=== PATIENT | male | born 1975 | race Caucasian/White ===

== ENCOUNTER 2017-06-03 17:36 | Emergency (ER) | payer OTHER ==
[~2017-06-03] VITALS: Ht 182.9 cm; Wt 113.4 kg
--- OUTSIDE RECORDS SUMMARY | ~2017-06-03 | XMS | Clinical Summary ---
Demographics + + + | Address | [address] | | | [place] [address] | + + + | Home Phone | | + + + | Preferred Language | Unknown | + + + | Marital Status | Single | + + + | Methodist Affiliation | ADV | + + + | Race | White | + + + | Ethnic Group | Not or | + + + Author + + + | Organization | Unknown | + + + | Address | Unknown | + + + | Phone | Unavailable | + + + Support + + + + + | Name | Relationship | Address | Phone | + + + + + | TITA WILLAMS | ECON | [place] | | + + + + + Care Team Providers + +------+ + | Care Svp Innovation Partnerships Name | Role | Phone | + +------+ + | Anshul Jiang MD | PP | | + +------+ + Source Comments GREG is fully live on both [facility] Ambulatory and [facility] InPatient.[facility] Allergies Not on File Current Medications Not on file Active Problems Not on file Social History + +-------+ +--------+------+ | Tobacco [...] on file | | + + + Plan of Treatment + + + + + | Health Maintenance | Due Date | Last Done | Comments | + + + + + | INFLUENZA VACCINE | | | | | (FLU SHOT) | 8 | | | + + + + + Results Not on filefrom Last 3 Months"
--- OUTSIDE RECORDS SUMMARY | ~2017-06-03 | XMS | Clinical Summary ---
Demographics + + + | Address | [address] | | | [place] [address] | + + + | Home Phone [...] Team Providers + +------+ + | Care Machine Chain Maker Name | Role | Phone | + +------+ + | Anshul Jiang MD | PP | | + +------+ + Source Comments GREG is fully live on both [facility] Ambulatory and [facility] InPatient.[facility] Allergies Not on File Current Medications Not [...]
[~2017-06-03 17:36] MED LIST: ALLEGRA-D 24 H1 EACH PO; ANUSOL-HC30 GM PR; CEPHALEXIN500 MG PO; CIPRO500 MG PO; CLARITIN-D 241 EACH PO; FLUTICASONE PRO16 GM NAS; GUAIFENESIN-CO118 ML PO; KEFLEX500 MG PO; LEVAQUIN500 MG PO; MACROBID 100 M100 MG PO; NORCO 5-325 TA1 EACH PO; OXYBUTYNIN CHLO10 MG PO; OXYBUTYNIN CHLOR5 MG PO; PROVENTIL HFA6.7 GM INH; ZOFRAN ODT8 MG PO
[2017-06-03] MEDS ORDERED: LOVASTATIN20 MG PO (17:54)
[2017-06-03] MEDS ORDERED: CLARITIN-D 241 EACH PO (17:54)
[2017-06-03] MEDS ORDERED: RA FISH OIL 1,1 EACH PO (17:54)
--- NOTE | 2017-06-04 17:42 | EKG ---
[facility] [address] [facility] [place], [place] [address] Signed Sinus tachycardia Otherwise normal ECG No previous ECGs available Confirmed by KAMI SHARMA MD ([id number]) on 06/04/2017 5:42:30 PM Electronically Signed By: KAMI SHARMA MD 06/04/17 174 PATIENT NAME: VINNIE THORNTON Electrocardiogram DATE OF : 77 PHYSICIAN: KAMI SHARMA MD REPORT #: [id number] REPORT IS CONFIDENTIAL AND NOT TO BE RELEASED WITHOUT AUTHORIZATION
== END 2017-06-03 20:30 | disposition home or self-care (01) ==
LOC: ED 17:36
DX: R07.2 Precordial pain (principal); F17.200 Nicotine dependence, unspecified, uncomplicated; Z79.899 Other long term (current) drug therapy
CPT/HCPCS: 71046; 76705; 80053; 83690; 84484; 85025; 85379; 93005; 93010; 96374; 99284; J1885

== ENCOUNTER 2017-08-09 16:56 | Emergency (ER) | payer OTHER ==
[~2017-08-09] VITALS: Ht 182.9 cm; Wt 113.4 kg
[~2017-08-09 16:56] MED LIST changes: +LOVASTATIN20 MG PO; +RA FISH OIL 1,1 EACH PO
[2017-08-09] MEDS ORDERED: OXYBUTYNIN CHLOR5 MG PO (17:19)
== END 2017-08-09 17:27 | disposition home or self-care (01) ==
LOC: ED 16:56
DX: K08.89 Other specified disorders of teeth and supporting structures (principal)

== ENCOUNTER 2018-06-22 16:29 | Emergency (ER) | payer OTHER ==
[~2018-06-22] VITALS: Ht 182.9 cm; Wt 113.4 kg
--- OUTSIDE RECORDS SUMMARY | ~2018-06-22 | XMS | Clinical Summary ---
Demographics + + + | Address | [address] | | | [place] [address] | + + + | Home Phone | | + + + | Preferred Language | Unknown | + + + | Marital Status | Single | + + + | Buddhism Affiliation | ADV | + + + [...] Team Providers + +------+ + | Care Furnace Unloader Name | Role | Phone | + +------+ + | Anshul Jiang MD | PP | | + +------+ + Source Comments GREG is fully live on both [facility] Ambulatory and [facility] InPatient.[facility] Allergies Not on File Current Medications [...]
--- OUTSIDE RECORDS SUMMARY | ~2018-06-22 | XMS | Clinical Summary ---
Demographics + + + | Address | [address] | | | [place] [address] | + + + | Home Phone [...] Team Providers + +------+ + | Care Land Commissioner Name | Role | Phone | + +------+ + | Anshul Jiang MD | PP | | + +------+ + Source Comments GREG is fully live on both [facility] Ambulatory and [facility] InPatient.[facility] Allergies Not on File Current Medications [...]
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
[2018-06-22] MEDS ORDERED: FENOFIBRATE54 MG PO (16:40)
== END 2018-06-22 17:13 | disposition home or self-care (01) ==
LOC: ED 16:29
DX: R51 Headache (principal); J45.909 Unspecified asthma, uncomplicated; F17.200 Nicotine dependence, unspecified, uncomplicated; Z79.899 Other long term (current) drug therapy; V43.52XA Car driver injured in collision with other type car in traffic accident, initial encounter
CPT/HCPCS: 99283

== ENCOUNTER 2018-06-28 21:21 | Emergency (ER) | payer OTHER ==
[~2018-06-28] VITALS: Ht 182.9 cm; Wt 113.4 kg
--- OUTSIDE RECORDS SUMMARY | ~2018-06-28 | XMS | Encounter Summary ---
Demographics + + + | Address | [address] | | | [place] [address] | + + + | Home Phone | | + + + | Preferred Language | Unknown | + + + | Marital Status | Single | + + + | Congregational Affiliation | ADV | + + + | Race | White | + + + | Ethnic Group | Not or | + + + Author + + + | Author | [facility] | + + + | Organization | [facility] | + + + | Address | Unknown | + + + | Phone | Unavailable | + + + Support + + + + + | Name | Relationship | Address | Phone | + + + + + | Yasmeen Donald | HILARIO | [place] | | + + + + + Care Team Providers + +------+ + | Care Compensation Specialist Name | Role | Phone | + +------+ + PCP | Unavailable | + +------+ + Encounter Details +--------+ + + + + | Date | Type | Department | Care Team | Description | +--------+ + + + + | 06/28/ | Results | [facility] | Katie Norwood, | | | 1999 | Only | Medicine at [facility] | | | | | | Terry [address] | | | | | | [facility] | | | | | | Mailcode: [address] | | | | | | [address] | | | | | | [place], [place] | | | | | | [address] | | | | | | [phone] | | | +--------+ + + + + Social History + +-------+ +--------+------+ | Tobacco Use | Types | Packs/Day | Years | Date | | | | | Used | | + +-------+ +--------+------+ | Never Assessed | | | | | + +-------+ +--------+------+ + + + | Sex Assigned at | Date Recorded | | | | + + + | Not on file | | + + + + + + + | Job Start Date | Occupation | Industry | + + + + | Not on file | Not on file | Not on file | + + + + + + + + | Travel History | Travel Start | Travel End | + + + + + + | No recent travel history available. | + + documented as of this encounter Plan of Treatment Not on filedocumented as of this encounter Procedures + +--------+ + + + | Procedure Name | Priori | Date/Time | Associated Diagnosis | Comments | | | ty | | | | + +--------+ + + + | HIV-1,2 AB/HIV-1 P24 | Routin | 06/29/1999 | | Results for this | | AG SCRN | e | 2:47 PM | | procedure are in the | | | | PDT | | results section. | + +--------+ + + + | FTA, SERUM | Routin | 06/29/1999 | | Results for this | | | e | 2:47 PM | | procedure are in the | | | | PDT | | results section. | + +--------+ + + + | HEPATITIS C VIRUS | Routin | 06/29/1999 | | Results for this | | W/CONFIRMATION | e | 2:47 PM | | procedure are in the | | | | PDT | | results section. | + +--------+ + + + documented in this encounter Results FTA, SERUM (06/29/1999 2:47 PM PDT) + + + + + + | Component | Value | Ref Range | Performed | Pathologist | | | | | At | Signature | + + + + + + | T. PALLIDUM | Non-Reactive | Non - Reactive | | | | AB IGG | | | | | | (FTA) | | | | | + + + + + + + + | Specimen | + + | | + + + + + + + | Performing | Address | City/State/Zipcode | Phone Number | | Organization | | | | + + + + + | [facility] | [address] | [place], [place] | | | [facility] | | [address] | | + + + + + HEPATITIS C AB (06/29/1999 2:47 PM PDT) + + + + + + | Component | Value | Ref Range | Performed | Pathologist | | | | | At | Signature | + + + + + + | HEPATITIS C | Negative | Negative | | | | AB | | | | | + + + + + + + + | Specimen | + + | | + + + + + | Narrative | Performed At | + + + | This serologic pattern suggests the | | | individual does not have Type C | | | hepatitis. | | + + + + + + + + | Performing | Address | City/State/Zipcode | Phone Number | | Organization | | | | + + + + + | [facility] | [address] | [place] [address] | | | LABORATORY | | | | + + + + + HIV AB, SCREEN (06/29/1999 2:47 PM PDT) + + + + + + | Component | Value | Ref Range | Performed | Pathologist | | | | | At | Signature | + + + + + + | HIV-1/HIV2 | Negative | Negative | [facility] | | | AB SCREEN | | | DEPARTMENT | | | | | | OF | | | | | | PATHOLOGY | | + + + + + + | FORM SIGNED | Junior | | [facility] | | | BY: | | | DEPARTMENT | | | | | | OF | | | | | | PATHOLOGY | | + + + + + + + + | Specimen | + + | | + + + + + + + | Performing | Address | City/State/Zipcode | Phone Number | | Organization | | | | + + + + + | [facility] DEPARTMENT OF | [address] | [place] [address] | | | PATHOLOGY | [address] | | | + + + + + | [facility] | [address] | [place] [address] | | | PATHOLOGY | [address] | | | + + + + + documented in this encounter Visit Diagnoses Not on filedocumented in this encounter"
--- OUTSIDE RECORDS SUMMARY | ~2018-06-28 | XMS | Clinical Summary ---
Demographics + + + | Address | [address] | | | [place] [address] | + + + | Home Phone | | + + + | Preferred Language | Unknown | + + + | Marital Status | Single | + + + | Sikhism Affiliation | ADV | + + + [...] Team Providers + +------+ + | Care Bingo Worker Name | Role | Phone | + +------+ + | Anshul Jiang MD | PP | | + +------+ + Source Comments GREG is fully live on both [facility] Ambulatory and [facility] InPatient.[facility] Allergies Not on File Medications Not on file Active Problems Not [...] recent travel history available. | + + Plan of Treatment + + + + + | Health Maintenance | Due Date | Last Done | Comments | + + + + + | Influenza (Flu) | | | | | vaccination (Season | 9 | | | | Ended) | | | | + + + + + Results Not on filefrom Last 3 Months"
--- OUTSIDE RECORDS SUMMARY | ~2018-06-28 | XMS | Encounter Summary ---
Demographics + + + | Address | [address] | | | [place] [address] | + + + | Home Phone | | + + + | Preferred Language | Unknown | + + + | Marital Status | Single | + + + | Mandaen Affiliation | ADV | + + + | Race | White | + + + | Ethnic Group | Not or | + + + Author + + + | Author | [facility] | + + + | Organization | [facility] | + + + | [...] Team Providers + +------+ + | Care Extension Service Specialist In Charge Name | Role | Phone | + +------+ + | Anshul Jiang MD | PCP | | + +------+ + Encounter Details +--------+ + + + + | Date | Type | Department | Care Team | Description | +--------+ + + + + | 10/15/ | DELETED | Preoperative | Consult, | ANESTHESIA/SEDATION | | 2001 | TRANSCRIPTI | Medicine Clinic at | Anesthesia [address] | | | | ON | [facility] 4th Floor [address] [facility] | | | | | [address] Mail | Road [place], [place] | | | | | Code: [address] | [address] | | | | | for Health and | | | | | | Healing,4th Floor | | | | | | [place], [place] | | | | | | [address] | | | | | | [phone] | | | +--------+ + + + [...] | + +--------+ + + + | ANESTHESIA/SEDATION | | 10/15/2001 | | Results for this | | | | 11:03 AM | | procedure are in the | | | | PDT | | results section. | + +--------+ + + + documented in this encounter Visit Diagnoses Not on filedocumented in this encounter"
--- OUTSIDE RECORDS SUMMARY | ~2018-06-28 | XMS | Encounter Summary ---
Demographics + + + | Address | [address] | | | [place] [address] | + + + | Home Phone | | + + + | Preferred Language | Unknown | + + + | Marital Status | Single | + + + | Confucianist Affiliation | ADV | + + + [...] + + + | Yasmeen Donald | ECON | [place] | | + + + + + Care Team Providers + +------+ + | Care Band Cutter Name | Role | Phone | + +------+ + | Anshul Jiang MD | PCP | | + +------+ + Encounter Details +--------+ + + + + | Date | Type | Department | Care Team | Description | +--------+ + + + + | 10/14/ | Procedure - | | Documentation, | OP REPORT-TEACHING | | 2001 | | | Teaching Physician | | | | Transcribed | | | | +--------+ + + + [...] | + +--------+ + + + | TEACHING PHYSICIAN | | 10/14/2001 | | | + +--------+ + + + documented in this encounter Visit Diagnoses Not on filedocumented in this encounter"
--- OUTSIDE RECORDS SUMMARY | ~2018-06-28 | XMS | Clinical Summary ---
Demographics + + + | Address | [address] | | | [place] [address] | + + + | Home Phone | | + + + | Preferred Language | Unknown | + + + | Marital Status | Single | + + + | Congregation Affiliation | ADV | + + + [...] Team Providers + +------+ + | Care Music Executive Name | Role | Phone | + +------+ + | Anshul Jiang MD | PP | | + +------+ + Source Comments GREG is fully live on both [facility] Ambulatory and [facility] InPatient.[facility] & [facility] Allergies Not on File Medications Not on [...]
--- OUTSIDE RECORDS SUMMARY | ~2018-06-28 | XMS | Encounter Summary ---
Demographics + + + | Address | [address] | | | [place] [address] | + + + | Home Phone | | + + + | Preferred Language | Unknown | + + + | Marital Status | Single | + + + | Latter-Day Affiliation | ADV | + + + | Race | White | + + + | Ethnic Group | Not or | + + + Author + + + | Author | [facility] | + + + | Organization | [facility] | + + + | [...] Team Providers + +------+ + | Care Catalogue Maker Name | Role | Phone | + +------+ + PCP | Unavailable | + +------+ + Encounter Details +--------+ + + + + | Date | Type | Department | Care Team | Description | +--------+ + + + + | 10/13/ | Results | Neurosurgery [address] | Morgan Cordova MD | | | 2001 | Only | [address] | | | | | | [facility] | | | | | | Mailcode:[id number] | | | | | | [facility] | | | | | | [place], [place] | | | | | | [address] | | | | | | [phone] | | | +--------+ + + + [...] | + +--------+ + + + | BASIC METABOLIC SET | Routin | 10/15/2001 | | Results for this | | (NA, K, CL, TCO2, | e | 8:20 AM | | procedure are in the | | BUN, CR, GLU, CA) | | PDT | | results section. | + +--------+ + + + | PHOSPHORUS, PLASMA | Routin | 10/15/2001 | | Results for this | | | e | 8:20 AM | | procedure are in the | | | | PDT | | results section. | + +--------+ + + + | MAGNESIUM, PLASMA | Routin | 10/15/2001 | | Results for this | | | e | 8:20 AM | | procedure are in the | | | | PDT | | results section. | + +--------+ + + + | TYPE AND SCREEN | Routin | 10/13/2001 | | Results for this | | | e | 12:05 PM | | procedure are in the | | | | PDT | | results section. | + +--------+ + + + documented in this encounter Results BASIC METABOLIC SET (10/15/2001 8:20 AM PDT) + +---------+ + + + | Component | Value | Ref Range | Performed | Pathologist | | | | | At | Signature | + +---------+ + + + | GLUCOSE, | 140 (H) | 65 - 110 mg/dL | [facility] | | | PLASMA | | | DEPARTMENT | | | (LAB) | | | OF | | | | | | PATHOLOGY | | + +---------+ + + + | BUN, PLASMA | 16 | 6 - 20 mg/dL | [facility] | | | (LAB) | | | DEPARTMENT | | | | | | OF | | | | | | PATHOLOGY | | + +---------+ + + + | CREATININE | 1.2 | 0.7 - 1.3 mg/dL | [facility] | | | PLASMA | | | DEPARTMENT | | | (LAB) | | | OF | | | | | | PATHOLOGY | | + +---------+ + + + | SODIUM, | 136 | 136 - 145 | [facility] | | | PLASMA | | mmol/L | DEPARTMENT | | | (LAB) | | | OF | | | | | | PATHOLOGY | | + +---------+ + + + | POTASSIUM, | 3.5 | 3.5 - 5.1 | [facility] | | | PLASMA | | mmol/L | DEPARTMENT | | | (LAB) | | | OF | | | | | | PATHOLOGY | | + +---------+ + + + | CHLORIDE, | 101 | 98 - 107 mmol/L | [facility] | | | PLASMA | | | DEPARTMENT | | | (LAB) | | | OF | | | | | | PATHOLOGY | | + +---------+ + + + | TOTAL CO2, | 25 | 23 - 29 mmol/L | [facility] | | | PLASMA | | | DEPARTMENT | | | (LAB) | | | OF | | | | | | PATHOLOGY | | + +---------+ + + + | CALCIUM, | 8.9 | 8.5 - 10.5 | [facility] | | | PLASMA | | mg/dL | DEPARTMENT | | | (LAB) | | | OF | | | | | | PATHOLOGY | | + +---------+ + + + + + | Specimen | + + | | + + + + + + + | Performing | Address | City/State/Zipcode | Phone Number | | Organization | | | | + + + + + | [facility] | [address] [facility] | [place] [address] | | | PATHOLOGY | [address] | | | + + + + + | [facility] | [address] [facility] [facility] [facility] | [place] [address] | | | PATHOLOGY | [address] | | | + + + + + MAGNESIUM, PLASMA (10/15/2001 8:20 AM PDT) + +-------+ + + + | Component | Value | Ref Range | Performed | Pathologist | | | | | At | Signature | + +-------+ + + + | MAGNESIUM,P | 2.0 | 1.8 - 2.5 mg/dL | [facility] | | | LASMA | | | DEPARTMENT | | | | | | OF | | | | | | PATHOLOGY | | + +-------+ + + + + + | Specimen | + + | | + + + + + + + | Performing | Address | City/State/Zipcode | Phone Number | | Organization | | | | + + + + + | [facility] | [address] [facility] | [place] [address] | | | PATHOLOGY | [address] | | | + + + + + | [facility] DE[facility]MENT OF | [address] [facility] [facility] | [place] [address] | | | PATHOLOGY | [address] | | | + + + + + PHOSPHORUS, PLASMA (10/15/2001 8:20 AM PDT) + +-------+ + + + | Component | Value | Ref Range | Performed | Pathologist | | | | | At | Signature | + +-------+ + + + | PHOSPHORUS, | 3.7 | 2.4 - 4.7 mg/dL | [facility] | | | PLASMA | | | DEPARTMENT | | | (LAB) | | | OF | | | | | | PATHOLOGY | | + +-------+ + + + + + | Specimen | + + | | + + + + + + + | Performing | Address | City/State/Zipcode | Phone Number | | Organization | | | | + + + + + | [facility] | [address] | [place] [address] | | | PATHOLOGY | [address] | | | + + + + + | [facility] DEPARTMENT OF | [address] | [place] [address] | | | PATHOLOGY | [address] | | | + + + + + TYPE AND SCREEN (10/13/2001 12:05 PM PDT) + +-------+ + + + | Component | Value | Ref Range | Performed | Pathologist | | | | | At | Signature | + +-------+ + + + | ABO GROUP | A | | [facility] | | | | | | DEPARTMENT | | | | | | OF | | | | | | PATHOLOGY | | + +-------+ + + + | RH TYPE | POS | | [facility] | | | | | | DEPARTMENT | | | | | | OF | | | | | | PATHOLOGY | | + +-------+ + + + | ANTIBODY | NEG | | [facility] | | | SCREEN | | | DEPARTMENT | | | | | | OF | | | | | | PATHOLOGY | | + +-------+ + + + + + | Specimen | + + | | + + + + + | Narrative | Performed At | + + + | EXP 10/17/01 @ 0700 | [facility] | | | DEPARTMENT OF | | | PATHOLOGY | + + + + + + + + | Performing | Address | City/State/Zipcode | Phone Number | | Organization | | | | + + + + + | [facility] DEPARTMENT OF | [address] | [place] [address] | | | PATHOLOGY | [address] | | | + + + + + | [facility] | [address] | [place] [address] | | | PATHOLOGY | [address] | | | + + + + + documented in this encounter Visit Diagnoses Not on filedocumented in this encounter"
--- OUTSIDE RECORDS SUMMARY | ~2018-06-28 | XMS | Encounter Summary ---
Demographics + + + | Address | [address] | | | [place] [address] | + + + | Home Phone | | + + + | Preferred Language | Unknown | + + + | Marital Status | Single | + + + | Mandaeism Affiliation | ADV | + + + [...] Team Providers + +------+ + | Care Boilermaker Helper Name | Role | Phone | + +------+ + | Anshul Jiang MD | PCP | | + +------+ + Encounter Details +--------+ + + + + | Date | Type | Department | Care Team | Description | +--------+ + + + + | 10/14/ | Office | | Note, Outpatient | Progress Note | | 2002 | Visit-Trans | | Clinic | | | | cribed | | | | +--------+ + + [...] + + documented as of this encounter Progress Notes Interface, Telephone Lines Repairer In - 10/05/2005 1:01 AM PDTCLINIC DATE: 10/14/2001 INTRAOPERATIVE EMG STUDY REPORT: Intraoperative EMG study was conducted on October 14, 2001, during a lumbosacral laminectomy and spinal cord and tethering procedure. The testing was performed to help the surgeon to identify and determine the functional integrity of the lumbosacral nerve roots prior to and tethering. EMG activity was recorded from the quadriceps, anterior tibialis, and gastrocnemius muscle groups bilaterally and from the anal sphincter. Lumbosacral nerve roots and the filum were stimulated using constant current pulses presented through jose f hook stimulating electrodes at a rate of 3.1 per second. The anesthesiologists were informed of the testing. TEST RESULTS: No spontaneous or mechanically evoked EMG activity was recorded. Stimulation of nerve roots successfully induced EMG activity from enervated muscle groups. No EMG activity was recorded at one of the structure identified as the filum was stimulated at up to 3 million. INTERPRETATION: The lack of spontaneous or mechanically evoked EMG activity during the procedure suggest that the nerve roots were not irritated as the result of the surgery. Electrical stimulation of nerve roots and the filum facilitated identification of the structures and tethering purposes. This intraoperative EMG study was requested by Dr. Morgan Cordova from the Department of Neurological Surgery. Technical survey started at 7:30 a.m. and ended at 10:30 a.m. I provided interpretation for 2 hours. Jessica Tracey M.D. Enclosure / [id number] / [id number] / [id number] / [id number] cc: Morgan Cordova M.D. [id number] docum ented in this encounter Plan of Treatment Not on filedocumented as of this encounter Visit Diagnoses Not on filedocumented in this encounter"
--- OUTSIDE RECORDS SUMMARY | ~2018-06-28 | XMS | Encounter Summary ---
Demographics + + + | Address | [address] | | | [place] [address] | + + + | Home Phone | | + + + | Preferred Language | Unknown | + + + | Marital Status | Single | + + + | Shinto Affiliation | ADV | + + + [...] Team Providers + +------+ + | Care Cota Name | Role | Phone | + [...] as of this encounter Progress Notes Interface, Knit Tubing Dyer In - 10/05/2005 1:01 AM PDTCLINIC DATE: [...] 2 hours. Jessica Tracey M.D. Enclosure / [id number] / [id number] / [id number] / [id number] cc: Morgan Cordova M.D. [id number] docum ented in this encounter Plan of Treatment Not on filedocumented as of this encounter Visit Diagnoses Not on filedocumented in this encounter"
--- OUTSIDE RECORDS SUMMARY | ~2018-06-28 | XMS | Encounter Summary ---
Demographics + + + | Address | [address] | | | [place] [address] | + + + | Home Phone | | + + + | Preferred Language | Unknown | + + + | Marital Status | Single | + + + | Yarsanism Affiliation | ADV | + + + [...] Team Providers + +------+ + | Care Recording Engineer Name | Role | Phone | + +------+ + | Anshul Jiang MD | PCP | | + +------+ + Encounter Details +--------+ + + + + | Date | Type | Department | Care Team | Description | +--------+ + + + + | 09/22/ | Transcribed | | Dictation, Other | Transcribed | | 2001 | | | | | +--------+ + + [...] as of this encounter Progress Notes Interface, Assistant Softball Coach In - 10/09/2005 1:05 AM [facility] [place] [address], [place] [address] or September 22, 2001 Tara De La Fuente M.D. [address] [place] [address] RE: JORDAN THORNTON MR #: [id number] Dear Dr. De La Fuente: It is a great pleasure to see your patient Jordan Thornton in our clinic at [place]. As you are well aware, this 25-year-old gentleman comes with a chief complaint of nocturnal enuresis. The patient states that he has had problems with bladder control all of his life. He states that when he was younger it would be only during the day sometimes, but as he developed and had a growth spur around the age of 12-13, he started having problems with bedwetting at nighttime and problems with bladder spasms and loss of control during the day. This has continued and it has actually become worse since his early teens. There is a significant history that he had "something" removed from his lower spine when he was a child. He does not remember what that was. He has no other complaints starting with no headaches, double vision or blurred vision, problem swallowing, problems talking, or phonating. He has no coordination problems in the upper and lower extremities. He has no weakness and no numbness. He declines that he has any saddle anesthesia. He declines that he has any problems with control of his bowel movements. He states that he has good coordination of his lower extremities, and there is no weakness, numbness, spasms, or pain in his lower extremities. He came to see you earlier this year for evaluation, and at that point, an MRI scan was done showing a tethered cord with lipoma. Additionally, urodynamic testing was done, and I do not have the results of that yet. His past medical history is fairly unknown as he has been adopted. He did inquire to his true mother about any other problems that he had in his period, and he did not. He has had no previous surgery. He takes no medication, save for hay fever. The family history the bit that he knows he thinks there is no cancer, diabetes, heart disease, high blood pressure, mental illness, convulsions, epilepsy, TB, arthritis, migraine headaches, blood disorders, or strokes. He did find out that both his mother and grandmother had bladder suspensions. 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 He smokes 1/2 pack per day. He does not drink. He has no drug allergies and takes no regular medications. Review of systems shows no cardiovascular problem with high blood pressure, angina, or other heart problems. No circulatory problems. GI, he has no ulcers, abdominal pain, jaundice, or hepatitis. Respiratorywise, no asthma, shortness of breath, or emphysema, only he has hay fever. He has no diabetes, cancer, skin disease, hematologic problems, or problems. He has no musculoskeletal problems, chronic back pain, or other deformities. He has no strokes, blackouts, epilepsy, or headaches. The remainder of the review of systems is negative. On examination, this is a very pleasant gentleman who gave a very concise history. He felt very embarrassed. He did not know much about his true family as he was adopted. It is obvious he has made an effort to find out what he can about his past medical and family problems. He cooperated full examination, gave us distinct history, and does not appear to be in any distress. He overall is concerned because he is getting soon, and he wants to make sure that this does not interfere with his life. Of note is the fact he states he has no problems with sexual function. Cranial nerve examination is intact. Pupils are equal and reactive to light. Full extraocular motion. Facies are symmetrical with normal sensation. Oropharynx is clear. Hearing is grossly normal. Sternocleidomastoid and trapezius strength is normal as is his facial sensation. Coordination of the upper and lower extremities for oruzxh-gc-jjfm, skwz-fxcd-aptv, and rapid alternating movement are normal. His gait is normal. There is no Romberg sign. His motor strength in the upper and lower extremities is 5-/5 with the exception of S2 in curling the toes, does seem a little weaker than plantarflexion. Reflexes are +2 and symmetrical in biceps, triceps, knee jerks, and ankle jerks. The toes are downgoing. Sensory examination shows decreased pinprick in the perianal region. He declined a rectal examination at this time. I have reviewed an MRI scan which was done on September 07, 2001. This shows that there is a tethered cord and that there appears to be a fatty material at the posterior margin of the cord and dura, possibly going through the dura. I cannot assess a true tract from the skin down, and this may be what was removed when he was a child. IMPRESSION : He has tethered cord syndrome with nocturnal enuresis, some perhaps S2 weakness and some perinanal numbness. He declined a rectal examination, so I do not have that material today, and he has had a urodynamic testing which you have the results of. At this point, he has a choice of doing nothing or having a untethering and removal of the fat. Overall, a surgery would probably help the deterioration of this but cannot be guaranteed to help improve the enuresis. The risks of surgery include infection, bleeding, and damage to the nerve root which could result in further bowel, bladder, and sexual dysfunction. The patient would have an untethering and this does not preclude that there will not be further scarring or tethering later on which is not unusual given a surgery like this. Any type of surgery will cause scarring and can actually eventually lead to problems which are above and beyond what he is currently having. We went over his films together. I proposed a laminectomy at the L5-S1 level, removal of the fat as best as possible while doing electrical recordings of the nerve roots and muscles in the rectal area and lower extremities. The patient understands what could be done. He elects at this time to have the surgery. His questions were solicited and answered. He would like to go ahead in the near future. We will do so. We appreciate your help with him. Yours sincerely, Morgan Cordova M.D. [facility] / [id number] / [id number] / [id number] / Tdocumented in this encounter Plan of Treatment Not on filedocumented as of this encounter Visit Diagnoses Not on filedocumented in this encounter
--- OUTSIDE RECORDS SUMMARY | ~2018-06-28 | XMS | Encounter Summary ---
Demographics + + + | Address | [address] | | | [place] [address] | + + + | Home Phone | | + + + | Preferred Language | Unknown | + + + | Marital Status | Single | + + + | Yazidi Affiliation | ADV | + + + [...] Team Providers + +------+ + | Care Combiner Operator Name | Role | Phone | + +------+ + | Anshul Jiang MD | PCP | | + +------+ + Encounter Details +--------+ + + + + | Date | Type | Department | Care Team | Description | +--------+ + + + + | 11/03/ | Letter-Cerda | | Letters, Other | Letters | | 2001 | scribed | | | | +--------+ + + [...] as of this encounter Progress Notes Interface, Sample Paster In - 10/05/2005 1:01 AM [facility] [place] [address] [address] or November 03, 2001 Tara De La Fuente M.D. [address] [facility] [place] [address] RE: JORDAN THORNTON MR #: [id number] Dear Dr. De La Fuente: Jordan Thornton follows up approximately 3 weeks after undergoing untethering of his spinal cord. Jordan is doing very well. He thinks that his bladder function has actually improved in that the amount of time between he has to go to the bathroom has increased. He has noticed no new weakness, numbness, or tingling. On examination today, the incision is well healed. There is no leakage of fluid. He has no new weakness, numbness, or reflex asymmetry. He has had no drainage from his back. The only thing that he mentioned is, he has, in the last several days, had some headaches, but these do not appear to be posturally related. At this point, he is stable from our standpoint. I do not think that he needs to follow up here. I do think that it would be interesting to see him in maybe 6 months if there is any change in his urodynamics. Thank you so much for sending him. Yours sincerely, Morgan Cordova M.D. [facility] / [id number] / [id number] / [id number] / [id number] Tdocumented in this encounter Plan of Treatment Not on filedocumented as of this encounter Visit Diagnoses Not on filedocumented in this encounter"
--- OUTSIDE RECORDS SUMMARY | ~2018-06-28 | XMS | Encounter Summary ---
Demographics + + + | Address | [address] | | | [place] [address] | + + + | Home Phone | | + + + | Preferred Language | Unknown | + + + | Marital Status | Single | + + + | Hinduism Affiliation | ADV | + + + | Race | White | + + + | Ethnic Group | Not or | + + + Author + + + | Author | [facility] | + + + | Organization | [facility] | + + + | Address | Unknown | + + + | Phone | Unavailable | + + + Support + + + + + | Name | Relationship | Address | Phone | + + + + + | Yasmeen Donald | HILARIO | [place] | | + + + + + Care Team Providers + +------+ + | Care Brazer Crawler Torch Name | Role | Phone | + +------+ + PCP | Unavailable | + +------+ + Encounter Details +--------+ + + + + | Date | Type | Department | Care Team | Description | +--------+ + + + + | 06/28/ | Results | [facility] | Katie Norwood, | | | 1999 | Only | Medicine at [facility] | | | | | | [place] [address] | | | | | | [facility] | | | | | | Mailcode: CHRIS Singh | | | | | | [place] | | | | | | [place], [place] | | | | | | [address] | | | | | | [phone] | | | +--------+ + + + [...] [facility] | [address] | [place], [place] | | | [facility] | | [address] | | + + + + + [...] + + + | [facility] | [address] | [place] [address] | | | LABORATORY | | | [...] DEPARTMENT OF | [address] | [place] [address] | | | PATHOLOGY | [address] | | | + + + + + | [facility] | [address] | [place] [address] | | | PATHOLOGY | [address] | | | + + + + + documented in this encounter Visit Diagnoses Not on filedocumented in this encounter"
--- OUTSIDE RECORDS SUMMARY | ~2018-06-28 | XMS | Encounter Summary ---
Demographics + + + | Address | [address] | | | [place] [address] | + + + | Home Phone | | + + + | Preferred Language | Unknown | + + + | Marital Status | Single | + + + | Church Affiliation | ADV | + + + [...] Team Providers + +------+ + | Care Tripper Name | Role | Phone | + [...] as of this encounter Progress Notes Interface, Rail Track Maintainer In - 10/09/2005 1:05 AM [facility] [place] [address], [place] [address] or September 22, 2001 Tara De La Fuente M.D. [address] [place] [address] RE: JORDAN THORNTON MR #: [id number] Dear Dr. De La Fuente: It is a great pleasure to see your patient Jordan Thornton in our clinic at [place]. 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 He smokes 1/2 pack per day. [...] of the upper and lower extremities for wniddm-bt-wasq, qcye-kbyn-pbrd, and rapid alternating movement are normal. His [...] with him. Yours sincerely, Morgan Cordova M.D. [facility] / [id number] / [id number] / [id number] / Tdocumented in this encounter Plan of Treatment Not on filedocumented as of this encounter Visit Diagnoses Not on filedocumented in this encounter
--- OUTSIDE RECORDS SUMMARY | ~2018-06-28 | XMS | Encounter Summary ---
Demographics + + + | Address | [address] | | | [place] [address] | + + + | Home Phone | | + + + | Preferred Language | Unknown | + + + | Marital Status | Single | + + + | Mormon Affiliation | ADV | + + + | Race | White | + + + | Ethnic Group | Not or | + + + Author + + + | Author | [facility] | + + + | Organization | [facility] | + + + | Address [...] Team Providers + +------+ + | Care Permastone Applicator Name | Role | Phone | + +------+ + | Anshul Jiang MD | PCP | | + +------+ + Encounter Details +--------+ + + + + | Date | Type | Department | Care Team | Description | +--------+ + + + + | 10/15/ | Documentati | Anesthesiology | Unknown . | | | 2001 | on | [address] | | | | | [address] | | | | | | [place], [place] | | | | | | [address] | | | +--------+ + + + [...] + + documented in this encounter Results ANESTHESIA/SEDATION (10/15/2001 11:03 AM PDT) + + + | Narrative | Performed At | + + + | Ordered by an unspecified provider. | | + + + + + | Transcriptions | + + | 10/15/2001 11:03 AM PDT Anesthesia PostOp Report | | | | Patient: JORDAN THORNTON Med Rec: [id number] Christen M Bdate: 1975 | | Date/Time Data | | Entered Into [facility] | | Anesth PostOp | | Surgery Date [id number] 10/15/01 11:03 | | Anesthesiologist ANSHUL POOL 10/15/01 11:03 | | Resident Anesthesiolog MARTIR MCDONNELL 10/15/01 11:03 | | Complications | | None/None Reported YES 10/15/01 14:49 | | Outcomes Information | | Satisfied with care YES 10/15/01 14:49 | | Info obtained from PATIENT 10/15/01 14:49 | | Outcome of Anesthesia NO CHANGE IN HOSPITAL COURSE 10/15/01 14:49 | | | + + documented in this encounter Visit Diagnoses Not on filedocumented in this encounter"
--- OUTSIDE RECORDS SUMMARY | ~2018-06-28 | XMS | Encounter Summary ---
Demographics + + + | Address | [address] | | | [place] [address] | + + + | Home Phone | | + + + | Preferred Language | Unknown | + + + | Marital Status | Single | + + + | Nondenominational Affiliation | ADV | + + + | Race | White | + + + | Ethnic Group | Not or | + + + Author + + + | Author | [facility] | + + + | Organization | [facility] | + + + | Address | Unknown | + + + | Phone | Unavailable | + + + Support + + + + + | Name | Relationship | Address | Phone | + + + + + | Yasmeen Donald | HILARIO | [place] | | + + + + + Care Team Providers + +------+ + | Care Registered Nurse Midwife Name | Role | Phone | + [...] [address] | | | | | | [facility] | | | | | | Mailcode:OP14B | | | | | | [facility] | | | | | | [place], [place] | | | | | | [address] | | | | | | [phone] | | | +--------+ + + + [...] | + + + + + | [facility] | [address] | [place] [address] | | | PATHOLOGY | [address] | | | + + + + + | [facility] | [address] | [place] [address] | | | PATHOLOGY | [address] [...] + | [place] DEPARTMENT OF | [address] | [place] [address] | | | PATHOLOGY | [address] | | | + + + + + | [facility] DEPARTMENT OF | [address] | [place] [address] | | | PATHOLOGY | [address] [...] | + + + + + | [facility] | [address] | [place] [address] | | | PATHOLOGY | [address] | | | + + + + + | [facility] DEPARTMENT OF | [address] | [place] [address] | | | PATHOLOGY | [address] [...] | + + + + + | [facility] DEPARTMENT OF | [address] | [place] [address] | | | PATHOLOGY | [address] | | | + + + + + | [place] DEPARTMENT OF | [address] | [place] [address] | | | PATHOLOGY | [address] | | | + + + + + documented in this encounter Visit Diagnoses Not on filedocumented in this encounter"
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
--- OUTSIDE RECORDS SUMMARY | ~2018-06-28 | XMS | Encounter Summary ---
Demographics + + + | Address | [address] | | | [place] [address] | + + + | Home Phone [...] Team Providers + +------+ + | Care Cnc Maintenance Technician Name | Role | Phone | + +------+ + | Anshul Jiang MD | PCP | | + +------+ + Encounter Details +--------+ + + + + | Date | Type | Department | Care Team | Description | +--------+ + + + + | 10/14/ | Procedure - | | Record, Operation | Operative Report | | 2001 | | | | | | | Transcribed | | [...] | + +--------+ + + + | OPERATION RECORD | | 10/14/2001 | | Results for this | | | | | | procedure are in the | | | | | | results section. | + +--------+ + + + documented in this encounter Results OPERATION RECORD (10/14/2001) + + | Transcriptions | + + | Interface, Medical Claims Assistant In - 10/09/2005 1:06 AM PDT | | [place] [address] | | [place], [place] [address] | | [facility] | | 01-55-14-11 Date: 10/14/2001Name: Bob Jordan SURGEON:Morgan Burger | | Blanka CordovaPRESS SMITH HELPER(S): Elvin Jeff M.D.POSTOPERATIVE | | DIAGNOSIS(ES):1. Lipomeningocele.2. Tethered cord.PROCEDURE(S) PERFORMED:1. L4, L5, | | S1, and S3 laminectomy bilaterally.2. Intradural exploration.3. Intraoperative | | ultrasound and interpretation of it.4. Resection of the filum terminale.ESTIMATED BLOOD | | LOSS:Less than 200 cc.SPECIMEN(S):None.COMPLICATIONS;None.INDICATIONS:Lipomeningocele. | | For more details, please refer to clinical note by EdmundH. Art M.D.PROCEDURE:After | | proper identification of the patient and insuring that an informedconsent was signed | | and placed in the chart, the patient was taken to theoperating room where general | | endotracheal anesthesia was induced. IVantibiotics were administered to the | | patient by the anesthesiologist. Hewas turned into a prone position on the Ryan | | frame. His lumbar regionwas prepped and draped in the usual sterile fashion. | | Somatosensory evokedpotentials were being monitored by the electrophysiology team.A #10 | | blade was used to make an incision over the spinous process of S2-L4.Monopolar was used | | to carry a subperiosteal dissection to the laminas ofS2, S1, L5 and L4 on both sides. | | Fong retractors were placed in thewound with adequate exposure of the L4 to | | S2 laminas. A laminectomy wasperformed at L4-5, S1 and S2, without any injury to | | underlying dura. Thelipoma was grossly seen underneath the dura and the cord and | | the filumpulling it down was also appreciated at the level of S1-S2 through | | thedura. A #15 blade was used to perform a longitudinal durotomy withoutinjury to | | underlying arachnoid. Again, the tethered conus of the filum wasobserved at the level | | of S1-S2. The arachnoid was lysed and monitoreddissection techniques were used to | | lyse the adhesions to the filum and theconus. Electrophysiological stimulation was | | used to insure that no nerveroots were wrapped or close to the filum. The filum was | | held at two endswhere the dural and bipolar was used to coagulate it. Microscissors | | wereused to incise the filum and after insuring that there was no bleeding fromeither | | side, the aspect of the filum attached to the conus was released andit was appreciated | | that with every pulsation of the cerebrospinal fluid,the conus traversed | | cephalad.Next, the inferior portion of the filum was again held about 1 cm distallyand | | 1 cm of filum was resected at this point after bipolaring it and usingmicroscissors. | | The nerve roots were again inspected to insure that noinjury occurred to any of the | | nerve roots. The thecal sac was irrigatedand there was no hemorrhage from this | | region and the cerebrospinal fluidreturned completely clear. The dura was closed | | using 6-0 Prolene in arunning fashion. The anesthesiologists were asked to perform a | | valsalva onthe patient and there was no cerebrospinal fluid leak from the | | duralclosure. 2 cc of Tisseal were laid over the dural closure and | | adequatehemostasis was achieved. The wound was irrigated. It was closed using | | 0Vicryl for the fascial layers at two layers. The subcutaneous layers | | werereapproximated using 3-0 Vicryl in an interrupted fashion. The superficialedges of | | the wound were reapproximated using 4-0 Rapide in a runningfashion. The wound | | was cleaned using a wet sponge followed by a drysponge, and covered with | | bacitracin, Telfa and Cover-Roll. The patient wasextubated in the operating room and | | was able to move his lower extremitieswithout any difficulties. He was taken to the | | Post Anesthesia Care Unit.Elvin Jeff M.D. Morgan Cordova, | | BlankaFL/x65D:10/14/2001T:10/15/[id number]: | |A #10 blade was used to make an incision over the spinous process of S2-L4. | |Monopolar was used to carry a subperiosteal dissection to the laminas of | |S2, S1, L5 and L4 on both sides. Fong retractors were placed in the | |wound with adequate exposure of the L4 to S2 laminas. A laminectomy was | |performed at L4-5, S1 and S2, without any injury to underlying dura. The | |lipoma was grossly seen underneath the dura and the cord and the filum | |pulling it down was also appreciated at the level of S1-S2 through the | |dura. A #15 blade was used to perform a longitudinal durotomy without | |injury to underlying arachnoid. Again, the tethered conus of the filum was | |observed at the level of S1-S2. The arachnoid was lysed and monitored | |dissection techniques were used to lyse the adhesions to the filum and the | |conus. Electrophysiological stimulation was used to insure that no nerve | |roots were wrapped or close to the filum. The filum was held at two ends | |where the dural and bipolar was used to coagulate it. Microscissors were | |used to incise the filum and after insuring that there was no bleeding from | |either side, the aspect of the filum attached to the conus was released and | |it was appreciated that with every pulsation of the cerebrospinal fluid, | |the conus traversed cephalad. | | | |Next, the inferior portion of the filum was again held about 1 cm distally | |and 1 cm of filum was resected at this point after bipolaring it and using | |microscissors. The nerve roots were again inspected to insure that no | |injury occurred to any of the nerve roots. The thecal sac was irrigated | |and there was no hemorrhage from this region and the cerebrospinal fluid | |returned completely clear. The dura was closed using 6-0 Prolene in a | |running fashion. The anesthesiologists were asked to perform a valsalva on | |the patient and there was no cerebrospinal fluid leak from the dural | |closure. 2 cc of Tisseal were laid over the dural closure and adequate | |hemostasis was achieved. The wound was irrigated. It was closed using 0 | |Vicryl for the fascial layers at two layers. The subcutaneous layers were | |reapproximated using 3-0 Vicryl in an interrupted fashion. The superficial | |edges of the wound were reapproximated using 4-0 Rapide in a running | |fashion. The wound was cleaned using a wet sponge followed by a dry | |sponge, and covered with bacitracin, Telfa and Cover-Roll. The patient was | |extubated in the operating room and was able to move his lower extremities | |without any difficulties. He was taken to the Post Anesthesia Care Unit. | | | | | | | |Blanka Swan M.D. | | | |FL/x65 | | | | | | | | | |[id number] | | | |CC: | + + documented in this encounter Visit Diagnoses Not on filedocumented in this encounter"
--- OUTSIDE RECORDS SUMMARY | ~2018-06-28 | XMS | Encounter Summary ---
Demographics + + + | Address | [address] | | | [place] [address] | + + + | Home Phone | | + + + | Preferred Language | Unknown | + + + | Marital Status | Single | + + + | Jew Affiliation | ADV | + + + [...] Team Providers + +------+ + | Care Competitive Athlete Name | Role | Phone | + [...]
--- OUTSIDE RECORDS SUMMARY | ~2018-06-28 | XMS | Encounter Summary ---
Demographics + + + | Address | [address] | | | [place] [address] | + + + | Home Phone | | + + + | Preferred Language | Unknown | + + + | Marital Status | Single | + + + | Evangelical Affiliation | ADV | + + + [...] Team Providers + +------+ + | Care Emergency Telecommunications Dispatcher Name | Role | Phone | + [...] | Transcriptions | + + | Interface, Overnight Caregiver In - 10/09/2005 1:06 AM PDT | | [place] [address] | | [place], [place] [address] | | [facility] No[facility] | | 01-55-14-11 Date: 10/14/2001Name: Bob Jordan SURGEON:Morgan Burger | | Blanka CordovaPRESTRESSED CONCRETE LABORER(S): Elvin Jeff M.D.POSTOPERATIVE | | DIAGNOSIS(ES):1. Lipomeningocele.2. [...] Unit.Elvin Jeff M.D. Morgan Cordova, | | BlankaFL/x65D:10/14/2001T:10/15/[id number]: | |A #10 blade was used to [...] | | | | | | | |[id number] | | | |CC: | + + documented in this encounter Visit Diagnoses Not on filedocumented in this encounter"
--- OUTSIDE RECORDS SUMMARY | ~2018-06-28 | XMS | Encounter Summary ---
Demographics + + + | Address | [address] | | | [place] [address] | + + + | Home Phone | | + + + | Preferred Language | Unknown | + + + | Marital Status | Single | + + + | Muslim Affiliation | ADV | + + + [...] Team Providers + +------+ + | Care Ground Surveillance Systems Operator Name | Role | Phone | [...] as of this encounter Progress Notes Interface, Recoil Spring Winder In - 10/05/2005 1:01 AM [facility] [place] [address] [address] or November 03, 2001 Tara De La Fuente M.D. [address] [place] [facility] [place] [address] RE: JORDAN THORNTON MR #: [id number] Dear Dr. De La Fuente: Jordan Thornton [...] sending him. Yours sincerely, Morgan Cordova M.D. [facility] / [id number] / [id number] / [id number] / [id number] Tdocumented in this encounter Plan of Treatment Not on filedocumented as of this encounter Visit Diagnoses Not on filedocumented in this encounter"
--- OUTSIDE RECORDS SUMMARY | ~2018-06-28 | XMS | Encounter Summary ---
Demographics + + + | Address | [address] | | | [place] [address] | + + + | Home Phone | | + + + | Preferred Language | Unknown | + + + | Marital Status | Single | + + + | Yazidism Affiliation | ADV | + + + | Race | White | + + + | Ethnic Group | Not or | + + + Author + + + | Author | [facility] | + + + | Organization | [facility] | + + + | [...] Team Providers + +------+ + | Care Keyboard Instrument Repairer Name | Role | Phone | + [...] Road | | | | | | [place], [place] | | | | | | [address] | | | +--------+ + + + [...] | | Patient: JORDAN THORNTON Med Rec: [id number] Christen M Bdate: 1975 | | Date/Time Data | | Entered Into [facility] | | Anesth PostOp | | Surgery Date [id number] 10/15/01 11:03 | | Anesthesiologist ANSHUL POOL [...]
--- OUTSIDE RECORDS SUMMARY | ~2018-06-28 | XMS | Encounter Summary ---
Demographics + + + | Address | [address] | | | [place] [address] | + + + | Home Phone | | + + + | Preferred Language | Unknown | + + + | Marital Status | Single | + + + | Bahai Affiliation | ADV | + + + | Race | White | + + + | Ethnic Group | Not or | + + + Author + + + | Author | [facility] | + + + | Organization | [facility] | + + + | Address [...] Team Providers + +------+ + | Care Technical Services Specialist Name | Role | Phone | [...] W | | | | ON | [facility] 4th Floor [address] | [facility] | | | | | [address] | Road [place], [place] | | | | | Code: [address] | [address] | | | | | for Health and | | | | | | Healing,4th Floor | | | | | | [place], [place] | | | | | | [address] | | | | | | [phone] | | | +--------+ + + + [...]
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
--- OUTSIDE RECORDS SUMMARY | ~2018-06-28 | XMS | Encounter Summary ---
Demographics + + + | Address | [address] | | | [place] [address] | + + + | Home Phone | | + + + | Preferred Language | Unknown | + + + | Marital Status | Single | + + + | Synagogue Affiliation | ADV | + + + [...] Team Providers + +------+ + | Care Curtain Worker Name | Role | Phone | + +------+ + | Anshul Jiang MD | PCP | | + +------+ + Encounter Details +--------+ + + + + | Date | Type | Department | Care Team | Description | +--------+ + + + + | 10/17/ | Discharge | | Summary, Discharge | D/C Summary ODDS | | 2001 | Summary-Tra | | | | | | nscribed | | | | +--------+ + + [...] + + documented as of this encounter Discharge Summaries Interface, Transit Bus Operator In - 10/05/2005 1:[address] [address] [facility] MEDICAL SUMMARY OF HOSPITALIZATION Med Rec No: [id number] Admission Date: 10/14/2001 Name: Jordan Jordan Discharge Date: 10/17/2001 STAFF PHYSICIAN: Morgan Cordova M.D. 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 ADDITIONAL DIAGNOSES: None. PRINCIPAL PROCEDURE: L5/S1 laminectomy and untethering of the cord with resection of lipoma. ADDITIONAL PROCEDURES: None. REASON FOR ADMISSION: This patient is a 25-year-old male with a long history of urinary complaints including nocturnal enuresis. Furthermore, he has experienced problems with decreased sensation in the S2 nerve distribution. A MRI showed a fatty material at the posterior margin of the cord and dura, possibly going through the dura and tethered cord. He was diagnosed with tethered cord syndrome. He presents to [facility] for the above-mentioned operation, a L5/S1 laminectomy, untethering of the cord, and resection of the lipoma. HOSPITAL COURSE: He presented on the morning of admission and tolerated the procedure well. He was transferred to the gandara. After his operation, the patient was instructed to lie flat for 72 hours. Though somewhat frustrated by this, he tolerated it well and had relatively good pain control. After the 72-hour period on October 17, the patient stood up and walked around. He felt comfortable. His Mancuso catheter was discontinued and after urinating he was discharged home that night. Of note, double-strength Bactrim was given 30 minutes before discontinuation of the Mancuso catheter. CONDITION ON DISCHARGE: Patient is discharged home in stable condition. DISCHARGE MEDICATIONS: Not dictated. DISCHARGE INSTRUCTIONS: ACTIVITY: Instructions were not to sit for prolonged periods. No heavy lifting. DIET: Regular diet. FOLLOW-UP: [facility]. Follow-up with Dr. Cordova in six weeks. Jose Ramon Martinez M.D. Morgan Cordova M.D. LNK/x43 [id number] signed by Interface, Transit Bus Operator In at 10/05/2005 1:01 AM PDTdoc umented in this encounter Plan of Treatment Not on filedocumented as of this encounter Visit Diagnoses Not on filedocumented in this encounter"
--- OUTSIDE RECORDS SUMMARY | ~2018-06-28 | XMS | Encounter Summary ---
Demographics + + + | Address | [address] | | | [place] [address] | + + + | Home Phone [...] Team Providers + +------+ + | Care Jtac Name | Role | Phone | + [...] as of this encounter Discharge Summaries Interface, Retail Event Coordinator In - 10/05/2005 1:[address] [address] [facility] MEDICAL SUMMARY OF HOSPITALIZATION Med Rec No: [...] with tethered cord syndrome. He presents to [facility] for the above-mentioned operation, a L5/S1 [...] FOLLOW-UP: [facility]. Follow-up with Dr. Cordova in six weeks. Jose Ramon Martinez M.D. Morgan Cordova M.D. LNK/x43 [id number] signed by Interface, Retail Event Coordinator In at 10/05/2005 1:01 AM PDTdoc umented in this encounter Plan of Treatment Not on filedocumented as of this encounter Visit Diagnoses Not on filedocumented in this encounter"
[~2018-06-28 21:21] MED LIST changes: +FENOFIBRATE54 MG PO
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
[2018-06-29] MEDS ORDERED: CEPHALEXIN500 MG PO (00:05)
== END 2018-06-29 00:47 | disposition home or self-care (01) ==
LOC: ED 21:21
DX: N39.0 Urinary tract infection, site not specified (principal); J45.909 Unspecified asthma, uncomplicated; F17.200 Nicotine dependence, unspecified, uncomplicated; Z79.899 Other long term (current) drug therapy
CPT/HCPCS: 74177; 80053; 81001; 83690; 85025; 87088; 99284-25; J0696; J1885

== ENCOUNTER 2020-07-12 17:14 | Emergency (ER) | payer OTHER ==
[~2020-07-12] VITALS: Ht 182.9 cm; Wt 113.4 kg
--- OUTSIDE RECORDS SUMMARY | 2020-07-12 17:18 | XMS ---
PreManage Notification: VINNIE THORNTON Security Ambulance Attendant Events No recent Security Events currently on file CRITERIA MET - Group Notification CARE PROVIDERS SALENA GIPSON Physician Resident Care Associate 06/23/2018-Current PHONE: [phone] Yolanda has no Care Guidelines for this patient. EJasmina VISIT COUNT (12 MO.) 1 [facility] TOTAL 1 NOTE: Visits indicate total known visits. ED/UCC VISIT TRACKING (12 MO.) 07/12/2020 17:15 [facility] [place] TYPE: Emergency COMPLAINT: - SORE MOUTH, N/V INPATIENT VISIT TRACKING (12 MO.) No inpatient visits to display in this time frame [email or web address]
[2020-07-12] MEDS ORDERED: PENICILLIN V P500 MG PO (19:10)
== END 2020-07-12 19:26 | disposition home or self-care (01) ==
LOC: ED 17:14
DX: K04.7 Periapical abscess without sinus (principal); J45.909 Unspecified asthma, uncomplicated; F17.200 Nicotine dependence, unspecified, uncomplicated; Z79.899 Other long term (current) drug therapy
CPT/HCPCS: 80053; 81001; 83735; 85025; 99282

== ENCOUNTER 2021-08-20 16:34 | Emergency (ER) | payer OTHER ==
[~2021-08-20] VITALS: Ht 180.3 cm; Wt 107.5 kg
--- NOTE | ~2021-08-20 | EKG ---
[facility] [address] [facility], [place] [address] Draft EK completed, results pending confirmation PATIENT NAME: VINNIE THORNTON Electrocardiogram DATE OF : 77 PHYSICIAN: PRELIMINARY REPORT #: [id number] REPORT IS CONFIDENTIAL AND NOT TO BE RELEASED WITHOUT AUTHORIZATION
[~2021-08-20 16:34] MED LIST changes: +PENICILLIN V P500 MG PO; +PYRIDIUM200 MG PO
--- OUTSIDE RECORDS SUMMARY | 2021-08-20 16:42 | XMS ---
PreManage Notification: VINNIE THORNTON Security Associate Director Of Sales Events No recent Security Events currently on file CRITERIA MET - [facility] - 2 Visits in 30 Days - Group Notification CARE PROVIDERS TEJA CHANEY Physician Smocker 07/19/2020-Current PHONE: [phone] SALENA GIPSON Physician Smocker 06/23/2018-Current PHONE: [phone] Yolanda has no Care Guidelines for this patient. Dayan VISIT COUNT (12 MO.) [address] [place] [address] TOTAL 3 NOTE: Visits indicate total known visits. ED/UCC VISIT TRACKING (12 MO.) 08/20/2021 16:[address] [facility] [place] TYPE: Emergency COMPLAINT: - BLOOD IN STOOL 08/20/2021 14:[address] [facility] [place] TYPE: Emergency COMPLAINT: - BLOOD IN STOOL 07/09/2021 14:[address] 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
[2021-08-20] MEDS ORDERED: ANUSOL-HC30 GM PR (20:24)
== END 2021-08-20 20:47 | disposition home or self-care (01) ==
LOC: ED 16:34
DX: K62.5 Hemorrhage of anus and rectum (principal); R06.02 Shortness of breath; J45.909 Unspecified asthma, uncomplicated; F17.200 Nicotine dependence, unspecified, uncomplicated; Z20.822 Contact with and (suspected) exposure to COVID-19
CPT/HCPCS: 36415; 71045; 80053; 83735; 83880; 84484; 85025; 85610; 85730; 87502; 93005; 93010; 99284-25; C9803; U0003

== ENCOUNTER 2021-10-09 09:14 | Emergency (ER) | payer OTHER ==
[~2021-10-09] VITALS: Ht 180.3 cm; Wt 107.5 kg
--- OUTSIDE RECORDS SUMMARY | 2021-10-09 09:22 | XMS ---
PreManage Notification: VINNIE THORNTON Security Infection Control Preventionist Events 1 event(s) in the past 18 months Most recent security events: Elopement at [facility] 08/20/2021 14:56 - Patient eloped before treatment completed. - Patient with suicidal and/or homicidal ideations eloped. - Patient eloped with IV in place. Details: PATIENT LWBS CRITERIA MET - Group Notification CARE PROVIDERS TEJA CHANEY Physician Parlor Maid 07/19/2020-Current PHONE: Unknown SALENA GIPSON Physician Parlor Maid 06/23/2018-Current PHONE: [phone] Yolanda has no Care Guidelines for this patient. ESang. VISIT COUNT (12 MO.) [address] [facility] TOTAL 5 NOTE: Visits indicate total known visits. 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 08/20/2021 16:35 [facility] [place] TYPE: Emergency COMPLAINT: - BLOOD IN STOOL DIAGNOSES: - Unspecified asthma, uncomplicated - Nicotine dependence, unspecified, uncomplicated - Shortness of breath - Hemorrhage of anus and rectum - Contact with and (suspected) exposure to COVID-19 08/20/2021 14:56 [facility] [place] TYPE: Emergency COMPLAINT: - BLOOD IN STOOL 07/09/2021 14:00 [facility] [place] TYPE: Emergency COMPLAINT: - POSS UTI, COUGH DIAGNOSES: - Acute upper respiratory infection, unspecified - Dysuria - Unspecified asthma, uncomplicated - Cough, unspecified - Nicotine dependence, unspecified, uncomplicated - Other group home (current) drug therapy INPATIENT VISIT TRACKING (12 MO.) No inpatient visits to display in this time frame [email or web address]
[2021-10-09] MEDS ORDERED: HYDROXYZINE HCL25 MG PO (09:44)
== END 2021-10-09 10:57 | disposition home or self-care (01) ==
LOC: ED 09:14
DX: L50.0 Allergic urticaria (principal); J45.909 Unspecified asthma, uncomplicated; F17.200 Nicotine dependence, unspecified, uncomplicated; Z79.899 Other long term (current) drug therapy
CPT/HCPCS: 96372; 99284; J0171

== ENCOUNTER 2021-10-25 06:15 | Day surgery (SDC) | payer OTHER ==
[~2021-10-25] VITALS: Ht 180.3 cm; Wt 107.5 kg
[~2021-10-25 06:15] MED LIST changes: +HYDROXYZINE HCL25 MG PO
--- NOTE | 2021-10-25 08:12 | NUR ---
10/25/21 0812 Mell Alvares 0807-PATIENT ARRIVED TO PACU ON 3L NC RR EVEN PLACED ON 2L. PATIENT AROUSES TO VERBAL STIMULI REMAINS VERY DROWSY. DENIES PAIN OR NAUSEA. LAYING LEFT LATERAL. IVF INFUSING. ABDOMEN SOFT.
--- NOTE | 2021-10-25 08:31 | NUR ---
PT ALERT, ORIENTED AND HERE FOR HIS FIRST SCOPE. ALL QUESTIONS ASKED ANSWERED. PT HAS ARRANGED A RIDE HOME WITH A FRIEND FROM [facility], PT REQUESTED PRAYER. PT SAID HE COULD TAKE A NAP-GAVE BLESSING AND WILL FOLLOW
--- NOTE | 2021-10-25 09:03 | OR ---
[facility] [address], [place] [address] Signed DATE OF OPERATION: 10/25/2021 SURGEON: Logan Chaudhary MD PREOPERATIVE DIAGNOSES: 1. Intermittent rectal bleeding without pain. 2. External hemorrhoid. POSTOPERATIVE DIAGNOSIS: Unremarkable colonoscopy. PROCEDURE: Colonoscopy without biopsy. ESTIMATED BLOOD LOSS: None. INDICATIONS: Jordan is a 45-year-old gentleman asked to see me for a colonoscopy. He has had a tethered spinal cord and has a neurogenic bladder requiring self catheterization. He also has learning disability and apparently becomes overwhelmed fairly easily. He comes to our local emergency room fairly frequently. 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 He said he is seeing intermittent rectal bleeding after he wipes with his bowel movements. He said there is no pain in the area of the anus or the abdomen. He told me he was adopted and has no knowledge of his family history. While in the emergency room in August of this year, he did have a trace amount of blood on the index finger. There was said to be a small external hemorrhoid. He was given a prescription for Anusol cream. He never filled the prescription. He said he has not had any additional bleeding since August 20, . His primary care provider asked him to see me with respect to the above. In the office, I gave him a pamphlet on colonoscopy. We reviewed the nature of the test. There is risk including, but not limited to gas bloating, crampy abdominal pain, bleeding, perforation requiring surgery, and missed diagnosis. We also reviewed the need for IV conscious sedation. He said he will have his friend take him home afterwards. He had expressed understanding and wished to proceed. PROCEDURE NOTE: Jordan was taken into our endoscopy suite and placed in the left lateral decubitus position. He was obviously anxious about the procedure. He took a total of 10 mg of Versed and 175 mcg of fentanyl. Even then, he was awake and talking to us. With more Electronically Signed By: LOGAN CHAUDHARY MD 10/25/21 0903 PATIENT NAME: JORDAN THORNTON OPERATIVE REPORT DATE OF : 77 REPORT #: [id number] PHYSICIAN: LOGAN CHAUDHARY MD PCP: TEJA CHANEY PA-C REPORT IS CONFIDENTIAL AND NOT TO BE RELEASED WITHOUT AUTHORIZATION [facility] [address], [place] [address] Signed sedation, he simply quit breathing. We had his oxygen turned up to 6 L/minute. Thankfully, he was easy to pass the scope. Nevertheless, he would benefit from monitored anesthesia care in the future. A digital rectal exam was performed and he had good sphincter tone. There were no masses. Really not much in the way of any external hemorrhoids. The adult colonoscope had been introduced and advanced around into the cecum itself. He essentially talked about the whole procedure. We could easily see the appendiceal orifice and the ileocecal valve. His prep was quite excellent. The scope was then slowly withdrawn. We saw no pathology throughout the entire colon or rectum. Upon retroflexion of the scope, we did not see any specific internal hemorrhoids or other pathology. After this, the gas was suctioned out and the colonoscope removed. Jordan tolerated the procedure quite well. RECOMMENDATIONS: Jordan can follow up in 10 years for repeat screening colonoscopy. Logan Chaudhary MD ALB/MODL /[id number] cc: MD Teja Silver PA Copies: LOGAN CHAUDHARY MD ~ Electronically Signed By: LOGAN CHAUDHARY MD 10/25/21 0903 PATIENT NAME: JORDAN THORNTON OPERATIVE REPORT DATE OF : 77 REPORT #: [id number] PHYSICIAN: LOGAN CHAUDHARY MD PCP: TEJA CHANEY PA-C REPORT IS CONFIDENTIAL AND NOT TO BE RELEASED WITHOUT AUTHORIZATION
--- NOTE | 2021-10-25 09:32 | NUR ---
HERE 0910 TO 0929 GETTING DRESSED AND WAITING FOR RIDE.
== END 2021-10-25 09:25 | disposition home or self-care (01) ==
LOC: DS 06:15
PROVIDERS: ATTEND Colon & Rectal Surgery
PROC: 0DJD8ZZ Inspection of Lower Intestinal Tract, Via Natural or Artificial Opening Endoscopic (ICD-10-PCS; principal; 2021-10-25 07:30)
DX: K62.5 Hemorrhage of anus and rectum (principal); K64.4 Residual hemorrhoidal skin tags; J45.909 Unspecified asthma, uncomplicated; Z20.822 Contact with and (suspected) exposure to COVID-19
CPT/HCPCS: 99153; G0500; J2250; J3010; J7121

== ENCOUNTER 2024-03-07 13:24 | Emergency (ER) | payer OTHER ==
[~2024-03-07] VITALS: Ht 180.3 cm; Wt 113.4 kg
[~2024-03-07 13:24] MED LIST changes: +CEFDINIR300 MG PO
--- OUTSIDE RECORDS SUMMARY | 2024-03-07 13:30 | XMS ---
PreManage Notification: VINNIE THORNTON Security Speech And Language Specialist Events No recent Security Events currently on file CRITERIA MET - Group Notification CARE PROVIDERS SALENA GIPSON Physician Tea Blender 06/23/2018-Current PHONE: Unknown Yolanda has no Care Guidelines for this patient. Dayan VISIT COUNT (12 MO.) 2 [facility] TOTAL 2 NOTE: Visits indicate total known visits. ED/UCC VISIT TRACKING (12 MO.) 03/07/2024 13:24 [facility] [place] TYPE: Emergency COMPLAINT: - FLANK PAIN 07/05/2023 07:03 [facility] [place] TYPE: Emergency COMPLAINT: - ABD PAIN DIAGNOSES: - Allergy status to other drugs, medicaments and biological substances - Constipation, unspecified - Left lower quadrant pain - Nicotine dependence, unspecified, uncomplicated - Other half-way (current) drug therapy - Urinary tract infection, site not specified INPATIENT VISIT TRACKING (12 MO.) No inpatient visits to display in this time frame [email or web address]
[2024-03-07] MEDS ORDERED: ACETAMINOPHEN 500 MG TAB PO ONE (14:30)
[2024-03-07] MEDS ORDERED: IBUPROFEN 600 MG TAB PO ONE (14:30)
[2024-03-07] MEDS ORDERED: HYDROCODON-ACE1 EA11 PO (14:36)
[2024-03-07 14:45] VITALS: BP 136/81
== END 2024-03-07 14:45 | disposition home or self-care (01) ==
LOC: ED 13:24
DX: S39.011A Strain of muscle, fascia and tendon of abdomen, initial encounter (principal); J45.909 Unspecified asthma, uncomplicated; F17.200 Nicotine dependence, unspecified, uncomplicated; Z88.2 Allergy status to sulfonamides; Z88.1 Allergy status to other antibiotic agents; Z79.899 Other long term (current) drug therapy; X50.1XXA Overexertion from prolonged static or awkward postures, initial encounter
CPT/HCPCS: 99283; A9270

== ENCOUNTER 2024-06-05 11:15 | Emergency (ER) | payer BC ==
[~2024-06-05] VITALS: Ht 180.3 cm; Wt 113.4 kg
[~2024-06-05 11:15] MED LIST changes: +HYDROCODON-ACE1 EA11 PO
--- OUTSIDE RECORDS SUMMARY | 2024-06-05 11:19 | XMS ---
PreManage Notification: VINNIE THORNTON Security Lab Engineer Events No recent Security Events currently on file CRITERIA MET - Group Notification CARE PROVIDERS SALENA GIPSON Physician Career Development Facilitator 06/23/2018-Current PHONE: Unknown Yolanda has no Care Guidelines for this patient. Dayan VISIT COUNT (12 MO.) 3 [facility] TOTAL 3 NOTE: Visits indicate total known visits. ED/UCC VISIT TRACKING (12 MO.) 06/05/2024 11:16 [facility] TYPE: Emergency COMPLAINT: - URINARY PROBLEMS 03/07/2024 13:24 [facility] [place] TYPE: Emergency COMPLAINT: - FLANK PAIN DIAGNOSES: - Allergy status to other antibiotic agents - Allergy status to sulfonamides - Nicotine dependence, unspecified, uncomplicated - Other terminologist (current) drug therapy - Overexertion from prolonged static or awkward postures, initial encounter - Strain of muscle, fascia and tendon of abdomen, initial encounter - Unspecified abdominal pain - Unspecified asthma, uncomplicated 07/05/2023 07:03 [facility] [place] TYPE: Emergency COMPLAINT: - ABD PAIN DIAGNOSES: - Allergy status to other drugs, medicaments and biological substances - Constipation, unspecified - Left lower quadrant pain - Nicotine dependence, unspecified, uncomplicated - Other senior care (current) drug therapy - Urinary tract infection, site not specified INPATIENT VISIT TRACKING (12 MO.) No inpatient visits to display in this time frame [email or web address]
[2024-06-05 12:19] LABS: BILIRUBIN, URINE NEGATIVE (negative); BLOOD/HGB, URINE SMALL (Negative); KETONE, URINE NEGATIVE (Negative); LEUK ESTERASE, URINE MODERATE (negative); NITRITE, URINE NEGATIVE (negative); PH, URINE 6.5 (5-7)
[2024-06-05 12:30] LABS: EPITHELIAL CELLS, URINE SQUAMOUS 1+ /lpf (0-1+)
[2024-06-05 12:31] LABS: BACTERIA, URINE 2+ /hpf (negative); CASTS, URINE NONE SEEN \\lpf; COLLECTION TYPE, URINE CLEAN CATCH; CRYSTALS, URINE NONE SEEN (0-1+); REFLEX CULTURE, URINE Yes (No); WHITE BLOOD CELLS, URINE 41-50 /HPF (0-5)
[2024-06-05] MEDS ORDERED: CEFDINIR 300 MG CAP PO ONE (13:15)
[2024-06-05 13:24] VITALS: BP 125/77
== END 2024-06-05 13:31 | disposition home or self-care (01) ==
LOC: ED 11:15
PROVIDERS: Emergency Medicine
DX: N39.0 Urinary tract infection, site not specified (principal); J45.909 Unspecified asthma, uncomplicated; Z88.2 Allergy status to sulfonamides; Z88.5 Allergy status to narcotic agent; F17.200 Nicotine dependence, unspecified, uncomplicated
CPT/HCPCS: 81001; 87088; 99284